=== PATIENT | male | born 1960 | race Hispanic/Latino ===

== ENCOUNTER 2018-02-14 15:23 | Emergency (ER) | payer SELFPAY ==
[2018-02-14 16:31] LABS: BASO % 0.3 % (0.0-2.0); EOS # 0.2 K/uL (0.0-0.7); EOS % 1.9 % (0.0-4.0); HEMOGLOBIN 17.4 g/dL (12.0-18.0); LYMPH # 2.3 K/uL (1.0-4.3); LYMPH % 29.2 % (20.0-40.0); MEAN CELL VOLUME 93.2 fL (80.0-94.0); MEAN CORPUSCULAR HEMOGLOBIN 31.8 pg (27.0-31.0); MEAN CORPUSCULAR HGB CONC 34.1 g/dL (33.0-37.0); MEAN PLATELET VOLUME 9.1 fL (7.2-11.7); MONO # 0.7 K/uL (0.0-0.8); MONO % 8.7 % (0.0-10.0); NEUT # 4.7 K/uL (1.8-7.0); NEUT % 59.9 % (50.0-75.0); NRBC % 0.1 % (0.0-2.0); RBC 5.48 Mil/uL (4.40-5.90); RED CELL DISTRIBUTION WIDTH 14.9 % (11.5-14.5); WHITE BLOOD COUNT 7.9 K/uL (4.8-10.8)
[2018-02-14] MEDS ORDERED: Naloxone 0.4 mg/ml Inj (Adult) ONE (16:33)
[2018-02-14 16:35] LABS: ALB/GLOB RATIO 1.6 (1.0-2.1); ALBUMIN 4.7 g/dL (3.5-5.0); ALT/SGPT 34 U/L (21-72); AST/SGOT 35 U/L (17-59); BLOOD UREA NITROGEN 5 mg/dL (9-20); CALCIUM 8.5 mg/dl (8.6-10.4); GFR NON-AFRICAN AMERICAN > 60
[2018-02-14] MEDS ORDERED: Thiamine 100 mg/ml Inj IM STA ×2 (17:50→21:04)
--- NOTE | 2018-02-14 18:16 | C.PDOC ---
History Of Present Illness 57 y/o male is brought in by EMS after family called, stating that patient was off balance after consuming half a gallon of vodka last night. Patient is intoxicated in ER and has no other complaints. Time Seen by Provider: 02/14/18 15:41 Chief Complaint (Nursing): Substance Abuse History Per: Patient History/Exam Limitations: no limitations Onset/Duration Of Symptoms: Days Current Symptoms Are (Timing): Still Present Past Medical History Reviewed: Historical Data, Nursing Documentation, Vital Signs Vital Signs: Last Vital Signs Temp 99.2 F 02/14/18 15:41 Pulse 88 02/14/18 15:41 Resp 16 02/14/18 15:41 BP 162/81 H 02/14/18 15:41 Pulse Ox 95 02/14/18 15:41 - Medical History PMH: Anxiety, Depression, HTN Denies: Diabetes, Hepatitis, HIV, Chronic Kidney Disease, Seizures, Sexually Transmitted Disease - [facility] Procedures ALCOHOL DETOXIFICATION (03/01/14) DETOXIFICATION SERVICES FOR SUBSTANCE ABUSE TREATMENT (09/13/15) GROUP PSYCHOTHERAPY (10/16/15) INDIV PSYCHOTHERAPY FOR SUBSTANCE ABUSE TREATMENT, SUPPORT (10/16/15) INFLUENZA VACCINATION (03/01/14) MEDICATION MANAGEMENT (10/16/15) OTHER GROUP THERAPY (03/01/14) PHARMACOTHERAPY FOR SUBSTANCE ABUSE, OTH REPLACE MED (10/16/15) Family History: States: No Known Family Hx - Social History Hx Tobacco Use: Yes Hx Alcohol Use: Yes Hx Substance Use: Yes - Immunization History Hx Tetanus Toxoid Vaccination: No Hx Influenza Vaccination: No Hx Pneumococcal Vaccination: No Review Of Systems Except As Marked, All Systems Reviewed And Found Negative. Physical Exam - Physical Exam Appears: Non-toxic, No Acute Distress, Other (Alcohol on breath) Skin: Normal Color, Warm, Dry Head: Atraumatic, Normacephalic Eye(s): bilateral: Normal Inspection, PERRL, EOMI Oral Mucosa: Moist Neck: Supple Chest: Symmetrical Cardiovascular: Rhythm Regular, No Murmur Respiratory: Normal Breath Sounds, No Rales, No Rhonchi, No Wheezing Gastrointestinal/Abdominal: Soft, No Tenderness Extremity: Bilateral: Atraumatic, Normal Color And Temperature, Normal ROM Neurological/Psych: Oriented x3, Normal Speech ED Course And Treatment - Laboratory Results Result Diagrams: 02/14/18 16:18 02/14/18 16:18 O2 Sat by Pulse Oximetry: 95 (RA) Pulse Ox Interpretation: Normal Medical Decision Making Medical Decision Making: Impression: Alcohol intoxication Plan: --Bloodwork --Urinalysis --Thiamine 100 mg IM case signed out to Dr. Newberry pending reevaluation, sobriety and disposition Disposition - Disposition Disposition Time: 01:00 Condition: FAIR Forms: [facility] (Faroese) - Clinical Impression Clinical Impression: Alcohol intoxication - Scribe Statement The provider has reviewed the documentation as recorded by the [place] Meza Provider Attestation: All medical record entries made by the Hangibcaro were at my direction and personally dictated by me. I have reviewed the chart and agree that the record accurately reflects my personal performance of the history, physical exam, medical decision making, and the department course for this patient. I have also personally directed, reviewed, and agree with the discharge instructions and disposition.
[2018-02-14] MEDS ORDERED: Thiamine 100 mg/ml Inj ONE (22:00)
[2018-02-14 23:34] VITALS: O2SAT 95
[2018-02-15 05:15] VITALS: RESP 18
[2018-02-15 06:10] VITALS: BP 138/92; PULSE 92; TEMP 98.4
== END 2018-02-15 06:29 | disposition home or self-care (01) ==
LOC: C.ER 15:23
DX: F10.129 Alcohol abuse with intoxication, unspecified (principal); Y90.8 Blood alcohol level of 240 mg/100 ml or more; I10 Essential (primary) hypertension; F41.9 Anxiety disorder, unspecified; F17.210 Nicotine dependence, cigarettes, uncomplicated
CPT/HCPCS: 80053; 83735; 84100; 85025; 96372; 99285; G0480; J3411